=== PATIENT | male | born 1960 | race Caucasian/White ===

== ENCOUNTER 2019-01-21 05:55 | Outpatient (RCR) | payer MEDICARE, MEDICAID, SELFPAY | END 2019-02-09 00:01 | LOC: LAB 05:55 | PROVIDERS: Family Provider Nurse Practitioner; Visit Provider Family Medicine | DX: I10 Essential (primary) hypertension (principal) | CPT/HCPCS: 36415; 80048; 85025 ==

== ENCOUNTER 2019-02-25 11:35 | Outpatient (RCR) | payer MEDICARE, MEDICAID, SELFPAY | END 2019-03-12 23:59 | disposition home or self-care (01) | LOC: LAB 11:35 | PROVIDERS: Family Provider Nurse Practitioner; PCP Nurse Practitioner; Visit Provider Family Medicine | DX: G40.89 Other seizures (principal) | CPT/HCPCS: 80177 ==

== ENCOUNTER 2022-05-11 11:51 | Emergency (ER) | payer MEDICARE, MEDICAID, SELFPAY ==
--- NOTE | 2022-05-11 11:51 | ED_ITS ---
HPI - Altered Mental Status General: Chief Complaint: Altered Mental Status Stated Complaint: AMS; LEFT LEG PAIN Time Seen by Provider: 05/11/22 11:51 History of Present Illness: Mr. Funez is a 61-year-old gentleman with history of stroke presenting to the emergency department for transient episode of visual disturbance. He resides in a shelter and has baseline left-sided flaccid paralysis. He reports increased headache and visual disturbance which he characterizes as blurry vision which was nonpainful and both eyes earlier today. This has improved. Intensity of symptoms when present was moderate to severe. I do not have a specific time of onset her last known normal. He endorses some left foot pain which is worse than baseline however denies known specific provoking event. No other specific changes in health, exacerbating, or alleviating factors identified. Onset (ago): hour(s) Severity: moderate Consistency of symptoms: Waxing and Waning Associated symptoms: Reports no associated symptoms Review of Systems General: Reports: 10 or more systems reviewed and unremarkable except in HPI and below PFSH ED PFSH: Medical History (Updated 05/19/22 @ 00:01 by LISSETTE Esteves) Cerebral infarction due to thrombosis of unspecified precerebral artery Hemiplegia, unspecified affecting left nondominant side Hyperlipidemia, unspecified Major depressive disorder, recurrent, moderate Personal history of COVID-19 Physical Exam Const: COMMON NORMALS: alert GENERAL APPEARANCE: cooperative and well developed HENMT: COMMON NORMALS: normocephalic and atraumatic HEAD & SCALP: normocephalic and atraumatic Eye: COMMON NORMALS: conjunctivae normal CONJUNCTIVA: Yes conjunctivae normal SCLERA: sclerae normal Neck/C-Spine: COMMON NORMALS: supple GENERAL: Yes trachea midline Resp: COMMON NORMALS: clear to auscultation bilaterally EFFORT & INSPECTION: Yes able to speak in complete sentences AUSCULTATION: clear to auscultation bilaterally Cardio: COMMON NORMALS: regular rate and regular rhythm RATE: regular rate RHYTHM: regular rhythm GI: COMMON NORMALS: Soft to palpation PALPATION: Yes Soft to palpation and No Tenderness to palpation present (GI) Extremity: NARRATIVE EXTREMITY EXAM: Left second toe superficial skin ulcerations/abrasions. No significant evidence of purulence or evidence of deep tissue infection. Pulses strong, normal cap refill. GENERAL: Yes normal exam except as noted and No edema Neuro: COMMON NORMALS: moves all extremities SENSORIUM/ORIENTATION: Yes alert and No Orientation impaired OTHER: Left-sided visual deficit, left-sided flaccid paralysis with sensation intact, otherwise normal exam Psych: COMMON NORMALS: mental status grossly normal and Normal thought process present THOUGHT PROCESS: Normal thought process present Course Vital Signs: Vital signs: Vital Signs Pulse Rate 74 05/11/22 17:23 Respiratory Rate 18 05/11/22 17:23 Blood Pressure 142/81 05/11/22 17:23 Pulse Oximetry 98 05/11/22 17:23 Oxygen Delivery Me thod Room Air 05/11/22 11:55 MDM - Altered Mental Status Medical Decision Making 61-year-old gentleman presenting with possible mental status change. He does have a history of stroke. As time of onset is unclear and baseline neurologic evidence patient is not a tPA candidate. EKG notable for atrial fibrillation, left axis deviation, nonspecific ST segment abnormalities, no STEMI. Labs with no significant hematologic abnormality. Metabolic panel with perhaps mild dehydration. Hematuria without UTI. Chest x-ray with no lobar consolidation or pneumothorax. Foot x-ray with no fracture. CT CTA demonstrates all findings however no acute intracranial pathology found. Patient treated with fluid bolus. On reassessment patient feels essentially back to baseline. He is on an aspirin and statin for secondary stroke prevention. The most likely etiology of patient symptoms is unclear, he does not appear to need hospitalization at this time. The results of ED evaluation were discussed with the patient including prescriptions and/or symptomatic cares (if applicable) including appropriate and responsible use, followup plan, and return precautions. The patient verbalized understanding and felt safe for discharge. Medical Records I reviewed the patient's medical records. Lab Data I reviewed the patient's lab results. 05/11/22 12:43 05/11/22 12:43 Radiology Impressions Chest X-Ray 05/11/22 12:00 IMPRESSION: Possible cardiomegaly. Heart size not optimally evaluated with a single AP view of the chest. Foot X-Ray 05/11/22 12:07 IMPRESSION: 1. Multi articular osteoarthritic changes are present most prominent across the 1st metatarsal phalangeal joint. 2. There is minimal contour abnormality at the distal aspect of the 5th digit proximal phalanx which has the appearance of an old fracture. No acute fracture visualized. 3.There are peripheral vascular calcifications. Head/Neck CTA 05/11/22 12:08 IMPRESSION: Old infarcts involving the right frontal, parietal, occipital, temporal lobes with associated encephalomalacia. There are senescent changes in the brain as described above. No large vessel stenosis or occlusion. IMPRESSION: No large vessel stenosis or occlusion. REFERENCES: NASCET CRITERIA. The degree of stenosis in the cervical segment of the internal carotid artery is based on NASCET criteria. Normal is no stenosis. Mild is less than 50% stenosis. Moderate is 50-69% stenosis. Severe is 70% to 99% stenosis. Total occlusion is no detectable patent lumen. Laboratory Results WBC 7.9 10^3/uL (4.0-10.0) 05/11/22 12:43 RBC 5.49 10^6/uL (4.1-5.3) H 05/11/22 12:43 Hgb 14.8 g/dL (11.7-16.6) 05/11/22 12:43 Hct 49.5 % (42.0-52.0) 05/11/22 12:43 MCV 90.2 fl (80-94) 05/11/22 12:43 MCH 27.0 pg (28.0-34.0) L 05/11/22 12:43 MCHC 29.9 g/dL (30.0-36.0) L 05/11/22 12:43 RDW 13.4 % (12.1-15.1) 05/11/22 12:43 Plt Count 165 10^3/cmm (130-400) 05/11/22 12:43 MPV 11.4 fL (7.4-10.4) H 05/11/22 12:43 Neut % (Auto) 62.0 % 05/11/22 12:43 Lymph % (Auto) 26.8 % 05/11/22 12:43 [place] % (Auto) 7.7 % 05/11/22 12:43 Eos % (Auto) 2.5 % 05/11/22 12:43 Baso % (Auto) 0.6 % 05/11/22 12:43 Neut # (Auto) 4.88 10^3/uL (1.8-7.7) 05/11/22 12:43 Lymph # (Auto) 2.1 10^3/uL (0.8-4.8) 05/11/22 12:43 [place] # (Auto) 0.6 10^3/uL (0.2-0.9) 05/11/22 12:43 Eos # (Auto) 0.2 10^3/uL (0.0-0.8) 05/11/22 12:43 Baso # (Auto) 0.1 10^3/uL (0.0-0.1) 05/11/22 12:43 Nucleated RBC % (auto) 0 % 05/11/22 12:43 Nucleated RBCs # 0.0 /100WBC 05/11/22 12:43 Sodium 135 mmol/L (136-145) L 05/11/22 12:43 Potassium 4.4 mmol/L (3.5-5.1) 05/11/22 12:43 Chloride 104 mmol/L (98-107) 05/11/22 12:43 Carbon Dioxide 20 mmol/L (22-29) L 05/11/22 12:43 Anion Gap 15.4 (5-19) 05/11/22 12:43 BUN 15 mg/dL (8-23) 05/11/22 12:43 Creatinine 0.9 mg/dL (0.7-1.2) 05/11/22 12:43 GFR Calculation 85.8 mL/min (90-130) L 05/11/22 12:43 Glucose 143 mg/dL (65-115) H 05/11/22 12:43 POC Glucose 157 mg/dL (70-110) H 05/11/22 11:59 Calculated Osmolality 283 mOsm/kg (285-295) L 05/11/22 12:43 Calcium 9.0 mg/dL (8.5-10.5) 05/11/22 12:43 Total Bilirubin 0.3 mg/dL (0.15-1.2) 05/11/22 12:43 AST 16 U/L (0-40) 05/11/22 12:43 ALT 22 U/L (0-41) 05/11/22 12:43 Alkaline Phosphatase 82 U/L (40-130) 05/11/22 12:43 Total Protein 7.1 g/dL (6.6-8.7) 05/11/22 12:43 Albumin 3.7 g/dL (3.5-5.2) 05/11/22 12:43 Globulin 3.4 g/dL (1.3-4.6) 05/11/22 12:43 TSH 1.12 uIU/mL (0.27-4.20) 05/11/22 12:43 Urine Color Yellow (Yellow) 05/11/22 13:40 Urine Appearance Clear (CLEAR) 05/11/22 13:40 Urine pH 5 (5-7) 05/11/22 13:40 Ur Specific [place] 1.020 (1.005-1.030) 05/11/22 13:40 Urine Protein Neg (Negative) 05/11/22 13:40 Urine Glucose (UA) Norm (Normal) 05/11/22 13:40 Urine Ketones Negative (Negative) 05/11/22 13:40 Urine Blood 2+ (Negative) H 05/11/22 13:40 Urine Nitrate Negative (Negative) 05/11/22 13:40 Urine Bilirubin Neg (Negative) 05/11/22 13:40 Urine Urobilinogen Norm mg/dL (Negative) 05/11/22 13:40 Ur Leukocyte Esterase Negative (Negative) 05/11/22 13:40 Urine RBC 0-4 /hpf (0-2) H 05/11/22 13:40 Urine WBC None /hpf (0-5) 05/11/22 13:40 Ur Squamous Epith Cells None /hpf (0-5) 05/11/22 13:40 Amorphous Sediment Not Reportable 05/11/22 13:40 Urine Bacteria Trace /hpf (NONE) 05/11/22 13:40 Discharge Plan Discharge Patient Disposition: Home Clinical Impression: Infection of toe, Transient neurological symptoms, History of stroke Condition: Stable Prescriptions: No Action acetaminophen 325 mg Tablet 650 mg PO Q4H PRN (Reason: Pain) gabapentin 600 mg Tablet 600 mg PO BID Senna-S 8.6-50 mg Tablet 1 tab-cap PO BID PRN (Reason: Constipation) Senna-S 8.6-50 mg Tablet 2 tab-cap PO DAILY hydrocodone-acetaminophen 10-325 mg Tablet 1 tab PO Q8H PRN (Reason: Pain) Banophen Anti-Itch 2-0.1 % Cream 1 applic TOPICAL Q12H PRN (Reason: Itching) pravastatin 80 mg Tablet 80 mg PO DAILY lorazepam 0.5 mg Tablet 0.5 mg PO DAILY PRN (Reason: Anxiety) Milk of Magnesia 400 mg/5 mL Suspension 30 ml PO DAILY PRN (Reason: Constipation) Flomax 0.4 mg Capsule 0.4 mg PO DAILY bisacodyl 10 mg Suppository 10 mg [place] DAILY PRN (Reason: Constipation) pantoprazole 40 mg Tablet,Delayed Release (Dr/Ec) 40 mg PO DAILY Enema 19-7 gram/118 mL Enema 118 ml [place] DAILY PRN (Reason: Constipation) gabapentin 300 mg Capsule 900 mg PO BEDTIME Zoloft 25 mg Tablet 25 mg PO DAILY aspirin 81 mg Tablet,Chewable 81 mg PO DAILY Antacid Calcium Supplement 500 mg calcium (1,250 mg) Tablet,Chewable 500 mg PO Q6H PRN (Reason: Heartburn) Keppra 750 mg Tablet 750 mg PO DAILY Nyamyc 100,000 unit/gram Powder 1 applic TOPICAL BID PRN (Reason: Rash) Miralax 17 gram/dose Powder 17 g PO Q12H PRN (Reason: Constipation) Zofran ODT 4 mg Tablet,Disintegrating 4 mg PO Q4H PRN (Reason: Nausea) benzocaine 20 % Gel 1 applic MUCOUS MEMBRANE PRN PRN (Reason: mouth sores) Lamictal 100 mg Tablet 100 mg PO BID Keppra 1,000 mg Tablet 1,000 mg PO BEDTIME venlafaxine 75 mg Tablet Extended Release 24hr 75 mg PO DAILY Narcan 4 mg/actuation [place],Non-Aerosol 4 mg INTRANASAL Q2M PRN (Reason: overdose) Rx Instructions: spray 1 dose into ONE nostril; alternate nostrils w each dose until help arrives Discharge Orders: Discharge ED (Routine); Ordered 05/11/22 Ordered By: Tej Graham Referrals: Rosaura Mendoza FNP [Family Provider] - Discharge Diet: Usual diet Discharge Activity: Resume usual activity Patient Instructions: Cellulitis (ED), Blurred Vision (ED) Activity Restrictions/Additional Instructions: Thank you for visiting the emergency department. You were seen and evaluated for transient episode of neurologic symptoms. The exact cause of your symptoms is unclear though does not need hospitalization at this time. For your toe I recommend continued local wound care, I will prescribe antibiotics. Please continue your other medications as prescribed. Please follow-up with your primary care provider. Return to the emergency department for anything that you are concerned about and feel needs emergency department evaluation. Coding Level of Care Code ED [employer] Intern for Augustin Lang
[2022-05-11 11:55] VITALS: BP 134/95; PULSE 92; RESP 16; O2SAT 94; BMI 46.0
--- NOTE | 2022-05-11 12:00 | XRR_ITS ---
PROCEDURE INFORMATION: Exam: XR Chest Exam date and time: 05/11/2022 12:06 PM Age: 61 years old Clinical indication: Stroke like symptoms TECHNIQUE: Imaging protocol: Radiologic exam of the chest. Views: 1 view. COMPARISON: No relevant prior studies available. FINDINGS: Lungs: Unremarkable. No consolidation. Pleural spaces: Costophrenic angles are not well seen and small pleural effusions cannot be excluded. No large pneumothorax. Heart/Mediastinum: Possible cardiomegaly. Heart size not optimally evaluated with a single AP view of the chest. Bones/joints: Unremarkable. XR/XR chest 1V portable [id number] IMPRESSION: Possible cardiomegaly. Heart size not optimally evaluated with a single AP view of the chest.
[2022-05-11 12:05] LABS: Glucose Point of Care 157 mg/dL (70-110)
--- NOTE | 2022-05-11 12:07 | XRR_ITS ---
PROCEDURE INFORMATION: Exam: XR Left Foot Exam date and time: 05/11/2022 12:12 PM Age: 61 years old Clinical indication: Pain; Foot; Left; Additional info: Atraumatic foot pain TECHNIQUE: Imaging protocol: Radiologic exam of the left foot. Views: 3 or more views. COMPARISON: No relevant prior studies available. FINDINGS: Bones/joints: Multi-articular primary osteoarthritic changes including joint space narrowing and subchondral cystic changes most prominent across the 1st metatarsal phalangeal joint. Enthesophytes are present off the os calcis at the Achilles insertion and plantar fascia origin. There is minimal contour abnormality at the distal aspect of the 5th digit proximal phalanx which has the appearance of an old fracture. No acute fracture visualized. [id number] hallux valgus. Soft tissues: Normal. Vasculature: There are peripheral vascular calcifications. XR/XR foot LT min 3V* [id number] IMPRESSION: 1. Multi articular osteoarthritic changes are present most prominent across the 1st metatarsal phalangeal joint. 2. There is minimal contour abnormality at the distal aspect of the 5th digit proximal phalanx which has the appearance of an old fracture. No acute fracture visualized. 3.There are peripheral vascular calcifications.
--- NOTE | 2022-05-11 12:07 | ECG_ITS ---
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: : 1960 Requested By: Tej Graham Order Number: [id number] Reading MD: Dayo Meza Measurements Intervals [place] Rate: 78 P: 0 ND: 0 QRS: -33 QRSD: 85 T: 49 QT: 340 QTc: 389 Interpretive Statements ATRIAL FIBRILLATION INFERIOR MYOCARDIAL INFARCTION , PROBABLY OLD [40+ ms Q WAVE AND/OR ST/T ABNORMALITY IN II/aVF] ANTEROSEPTAL MYOCARDIAL INFARCTION , OF INDETERMINATE AGE [40+ ms Q WAVE IN V1-V4] No previous ECG available for comparison Electronically Signed On 05-12-2022 19:02:14 CDT by Dayo Meza [id number]
--- NOTE | 2022-05-11 12:08 | CTR_ITS ---
PROCEDURE INFORMATION: Exam: CTA Head With Contrast, Arteriography Exam date and time: 05/11/2022 1:46 PM Age: 61 years old Clinical indication: Other: Confusion, visual disturbance, L visual field cut, HX stroke; Prior surgery; Surgery type: Brain TECHNIQUE: Imaging protocol: Computed tomographic angiography of the head with contrast. Exam focused on the arteries. 3D rendering (Not supervised by radiologist): MIP and/or 3D reconstructed images were created by the technologist. Radiation optimization: All CT scans at this facility use at least one of these dose optimization techniques: automated exposure control; mA and/or kV adjustment per patient size (includes targeted exams where dose is matched to clinical indication); or iterative reconstruction. Contrast material: OMNI 350; Contrast volume: 100 ml; Contrast route: INTRAVENOUS (IV); REPORTING DATA: Count of CT and Cardiac NM exams in prior 12 months: This patient has received 0 known CTs and 0 known cardiac nuclear medicine studies in the 12 months prior to the current study. COMPARISON: No relevant prior studies available. RADIATION DOSE METRICS: Total DLP (mGy-cm): 1208.22 FINDINGS: ANTERIOR CIRCULATION: Right internal carotid artery: There scattered atherosclerotic plaque in the bilateral carotid siphons with luminal irregularity however no significant focal stenosis or aneurysm. Right middle cerebral artery: M2 and M3 segments are attenuated in the regions of old infarct/encephalomalacia. Right anterior cerebral artery: No occlusion or significant stenosis. No aneurysm. Left internal carotid artery: There scattered atherosclerotic plaque in the bilateral carotid siphons with luminal irregularity however no significant focal stenosis or aneurysm. Left middle cerebral artery: No occlusion or significant stenosis. No aneurysm. Left anterior cerebral artery: No occlusion or significant stenosis. No aneurysm. POSTERIOR CIRCULATION: Right vertebral artery: No occlusion or significant stenosis. No aneurysm. Left vertebral artery: There is scattered atherosclerotic plaque at the craniovertebral junction with luminal irregularity however no significant focal stenosis. No occlusion or significant stenosis. No aneurysm. Basilar artery: No occlusion or significant stenosis. No aneurysm. Right posterior cerebral artery: No occlusion or significant stenosis. No aneurysm. Left posterior cerebral artery: No occlusion or significant stenosis. No aneurysm. Brain: Old infarcts involving the right frontal, parietal, occipital, and temporal lobes with associated encephalomalacia which involves the right thalamus and right brainstem as well. Periventricular and subcortical white matter low densities are present which at this age likely represent microvascular ischemic change. Generalized cerebral atrophy. Cerebral ventricles: Old infarcts involving the right frontal, parietal, occipital, and temporal lobes with prominent associated encephalomalacia changes and dilatation ex vacuo of the right lateral ventricle. Right craniotomy changes. Auditory system: There is cerumen in the bilateral external auditory canals. Paranasal sinuses: There is mucosal thickening of the paranasal sinuses. Bones/joints: See Cerebral ventricles finding. Soft tissues: Unremarkable. PROCEDURE INFORMATION: Exam: CTA Neck With Contrast Exam date and time: 05/11/2022 1:46 PM Age: 61 years old Clinical indication: Other: Confusion, visual disturbance, L visual field cut, HX stroke; Prior surgery; Surgery type: Brain TECHNIQUE: Imaging protocol: Computed tomographic angiography of the neck with contrast. 3D rendering (Not supervised by radiologist): MIP and/or 3D reconstructed images were created by the technologist. Radiation optimization: All CT scans at this facility use at least one of these dose optimization techniques: automated exposure control; mA and/or kV adjustment per patient size (includes targeted exams where dose is matched to clinical indication); or iterative reconstruction. Contrast material: OMNI 350; Contrast volume: 100 ml; Contrast route: INTRAVENOUS (IV); REPORTING DATA: Count of CT and Cardiac NM exams in prior 12 months: This patient has received 0 known CTs and 0 known cardiac nuclear medicine studies in the 12 months prior to the current study. COMPARISON: CR (CHEST, ) 05/11/2022 12:06 PM RADIATION DOSE METRICS: Total DLP (mGy-cm): 1208.22 FINDINGS: Right common carotid artery: No stenosis. No dissection or occlusion. Right internal carotid artery: No stenosis of the extracranial segment. No dissection or occlusion. Right external carotid artery: No occlusion or stenosis of the origin. Left common carotid artery: No stenosis. No dissection or occlusion. Left internal carotid artery: No stenosis of the extracranial segment. No dissection or occlusion. Left external carotid artery: No occlusion or stenosis of the origin. Right vertebral artery: No stenosis. No dissection or occlusion. Left vertebral artery: There is scattered atherosclerotic plaque with luminal irregularity however no significant focal stenosis. No dissection or occlusion. Soft tissues: There are benign-appearing soft tissue calcifications. Bones/joints: Degenerative changes are present in the visualized spine. CT/CT angio headneck* [id number] IMPRESSION: Old infarcts involving the right frontal, parietal, occipital, temporal lobes with associated encephalomalacia. There are senescent changes in the brain as described above. No large vessel stenosis or occlusion. IMPRESSION: No large vessel stenosis or occlusion. REFERENCES: NASCET CRITERIA. The degree of stenosis in the cervical segment of the internal carotid artery is based on NASCET criteria. Normal is no stenosis. Mild is less than 50% stenosis. Moderate is 50-69% stenosis. Severe is 70% to 99% stenosis. Total occlusion is no detectable patent lumen.
[2022-05-11 12:52] LABS: Basophils # 0.1 10^3/uL (0.0-0.1); Basophils % 0.6 %; Eosinophils # 0.2 10^3/uL (0.0-0.8); Eosinophils % 2.5 %; Hematocrit 49.5 % (42.0-52.0); Hemoglobin 14.8 g/dL (11.7-16.6); Lymphocytes # 2.1 10^3/uL (0.8-4.8); Lymphocytes % 26.8 %; Mean Corpuscular HGB Conc 29.9 g/dL (30.0-36.0); Mean Corpuscular Volume 90.2 fl (80-94); Mean Platelet Volume 11.4 fL (7.4-10.4); Monocytes # 0.6 10^3/uL (0.2-0.9); Monocytes % 7.7 %; Neutrophils # 4.88 10^3/uL (1.8-7.7); Nucleated Red Blood Cells % 0 %; Platelet Count 165 10^3/cmm (130-400); Red Blood Count 5.49 10^6/uL (4.1-5.3); Red Cell Distribution Width 13.4 % (12.1-15.1); White Blood Count 7.9 10^3/uL (4.0-10.0)
[2022-05-11 13:33] LABS: Alanine Aminotransferase 22 U/L (0-41); Albumin Level 3.7 g/dL (3.5-5.2); Alkaline Phosphatase 82 U/L (40-130); Anion Gap 15.4 (5-19); Aspartate Amino Transferase 16 U/L (0-40); Blood Urea Nitrogen 15 mg/dL (8-23); Carbon Dioxide 20 mmol/L (22-29); Chloride 104 mmol/L (98-107); Globulin 3.4 g/dL (1.3-4.6); Glomerular Filtration Rate 85.8 mL/min (90-130); Glucose 143 mg/dL (65-115); Osmolality Calculated 283 mOsm/kg (285-295); Potassium 4.4 mmol/L (3.5-5.1); Sodium 135 mmol/L (136-145); Thyroid Stimulating Hormone 1.12 uIU/mL (0.27-4.20); Total Bilirubin 0.3 mg/dL (0.15-1.2); Total Protein 7.1 g/dL (6.6-8.7)
[2022-05-11 13:47] VITALS: BP 112/74; PULSE 78; RESP 16; O2SAT 98
[2022-05-11] MEDS: iohexol 350 mg/mL 500 mL Btl (per mL) IV (13:55)
[2022-05-11 14:24] LABS: Add Urine Culture? No; Add Urine Microscopic? YES; Bacteria Urine TRACE /hpf; Bilirubin Urine Neg (Negative); Blood Urine 2+ (Negative); Glucose Urine UA Norm (Normal); Ketones Urine Negative (Negative); Leukocyte Esterase Urine Negative (Negative); Nitrate Urine Negative (Negative); Protein Urine Neg (Negative); RBC Urine 0-4 /hpf (0-2); Urine Appearance Clear (CLEAR); Urine Color Yellow (Yellow); Urobilinogen Urine Norm (Negative); pH Urine 5 (5-7)
[2022-05-11] MEDS: sodium chloride 0.9% 500 ML 999 ML IV (14:25)
[2022-05-11 14:44] VITALS: BP 140/93; PULSE 88; O2SAT 95
[2022-05-11 17:19] VITALS: BP 142/81; PULSE 74; RESP 18; O2SAT 98
[2022-05-11 17:23] VITALS: BP 142/81; PULSE 74; RESP 18; O2SAT 98
== END 2022-05-11 17:24 | disposition home or self-care (01) ==
PROVIDERS: Emergency Provider Emergency Medicine; Family Provider Nurse Practitioner; PCP Internal Medicine
DX: R29.5 Transient paralysis (principal); Z86.73 Personal history of transient ischemic attack (TIA), and cerebral infarction without residual deficits; L97.529 Non-pressure chronic ulcer of other part of left foot with unspecified severity; L98.499 Non-pressure chronic ulcer of skin of other sites with unspecified severity; L08.9 Local infection of the skin and subcutaneous tissue, unspecified; E78.5 Hyperlipidemia, unspecified
CPT/HCPCS: 36416; 70496; 70498; 71045; 73630; 80053; 81001; 82962; 84443; 85025; 93005; 99285; J7040; Q9967